=== PATIENT | female | born 2000 ===

== ENCOUNTER 2023-06-27 21:12 | Outpatient (REF) | payer OTHER, SELFPAY ==
[2023-06-29 16:10] LABS: Candida species Negative (Negative); Gardnerella vaginalis Negative (Negative); Trichomonas vaginalis Negative (Negative)
== END 2023-06-27 21:13 | disposition home or self-care (01) ==
LOC: LAB 21:12
PROVIDERS: Visit Provider Nurse Practitioner
DX: Z30.9 Encounter for contraceptive management, unspecified (principal); Z12.4 Encounter for screening for malignant neoplasm of cervix; Z11.3 Encounter for screening for infections with a predominantly sexual mode of transmission
CPT/HCPCS: 36415; 87480; 87510; 87624; 87660; 88175

== ENCOUNTER 2024-08-16 22:58 | Emergency (ER) | payer BC, OTHER, SELFPAY ==
--- OUTSIDE RECORDS SUMMARY | 2024-08-16 23:10 | XMS_ITS | CCD ---
Author Organization [facility] Care Team Providers Care Senior Project Manager Engineering Name Role Phone SYSTEM, PROVIDER NOT IN Primary Care MIKAYLA Howard JR. Attending Unavailab MIKAYLA Olmedo Attending Unavailable MIKAYLA TANNER Referring Unavailable Unavailable Primary Care Provider Unavailtony chapa Unavailable Primary Care Provider UnavailYOAN Ji Attending Unavailable YOAN DOWNS Attending Unavailable Mark BUFFING MACHINE TENDER-ACTIVITY SPECIALISTMichael Primary Care Provider Davion BUFFING MACHINE TENDER-FORECLOSURE CLERK, [place] Primary Care Provider KATHARINE MARTINEZ Attending Unavailable MICHAEL FLORES Referring Unavailable [facility] Primary Care Unavailable [facility] Care Unavailable MOODY HARRIS Attending Unavailabl e [facility] Primary Care Unava ilable Allergies Allergy Classification Reported Allergen(s) Allergy Type Date of Onset Reaction(s) Facility (7 sources) Amoxicillin; Translations: [AMOXICILLIN] Drug Allergy 3 Other (See Comments) [facility] Healthcare Work Phone: Medications Current Medications Medication Drug Class(es) Dates Sig (Normalized) Sig (Original) [id number] 200 actuat albuterol 0.09 mg/actuat metered dose inhaler (4 sources) beta2-Adrenergic Agonist take 2 puff(s) by inhalation every six hours as needed for wheezing albuterol (PROVENTIL HFA;VENTOLIN HFA) 90 mcg/actuation inhaler Inhale 2 puffs every 6 (six) hours as needed for wheezing. Active bisoprolol fumarate 5 mg oral tablet (5 sources) beta-Adrenergic Basilio Start: 09-25-2023 take 0.5 tablet by mouth once daily bisoprolol (ZEBETA) 5 mg tablet Indications: PAC (premature atrial contraction) , Dysautonomia (CMS-HCC) , Syncope and collapse , Palpitations , Abnormal EKG , Shortness of breath Take 0.5 tablets (2.5 mg total) by mouth nightly. 90 tablet 3 09/25/2023 Active Start: 01-26-2023 End: 09-25-2023 take 0.5 tablet by mouth once daily bisoprolol (ZEBETA) 5 mg tablet Indications: Dysautonomia (CMS-HCC) , Syncope and collapse , Palpitations , Abnormal EKG , PAC (premature atrial contraction) , Shortness of breath Take 0.5 tablets (2.5 mg total) by mouth nightly. 90 tablet 3 01/26/2023 09/25/2023 Discontinued (Reorder) cetirizine hydrochloride 10 mg chewable tablet (2 sources) Histamine-1 Receptor Antagonist cetirizine (ZyrTEC) 10 MG chewable tablet Chew Daily 0 Active Ethinyl Estradiol / norgestimate (3 sources) Progestin, Estrogen take 1 tablet by mouth once in the morning norgestimate-ethinyl estradioL (ORTHO TRI-CYCLEN,TRINESSA) 0.18/0.215/0.25 mg-35 mcg (28) per tablet Take 1 tablet by mouth in the morning. Active take 1 tablet by eduin th in the morning norgestimate-ethinyl estradiol (Sprintec 28) 0.25-35 MG-MCG tablet Take 1 tablet by mouth in the morning. 0 Active loratadine 10 mg oral tablet (4 sources) take 1 tablet by mouth in the morning loratadine (CLARITIN) 10 mg tablet Take 1 tablet (10 mg total) by mouth in the morning. Active midodrine hydrochloride 2.5 mg oral tablet (2 sources) alpha-Adrenergic Agonist Start: 09-25-19 24 End: 09-25-19 24 take 1 tablet by mouth three times daily midodrine (PROAMATINE) 2.5 mg tablet Take 1 tablet (2.5 mg total) by mouth 3 (three) times a day. 60 tablet 3 09/25/2023 09/25/2023 Discontinued montelukast 10 mg oral tablet (6 sources) Leukotriene Receptor Antagonist Start: 01-25-20 23 take 1 tablet by mouth once daily montelukast (SINGULAIR) 10 mg tablet Take 1 tablet (10 mg total) by mouth nightly. 01/24/2023 Active omeprazole 20 mg delayed release oral capsule (6 sources) Proton Pump Inhibitor take 1 capsule by mouth in the morning omeprazole (PriLOSEC) 20 mg capsule Take 1 capsule (20 mg total) by mouth in the morning. Active Problems Active Problems Problem Classification Problem Date Documented Date Episodic/Chronic Abdominal pain (2 sources) Unspecified abdominal pain; Translations: [Unspecified abdominal pain] Onset: 05-24-2022 Episodic Cardiac dysrhythmias (2 sources) Premature atrial contraction; Translations: [Atrial premature depolarization] Onset: 09-25-2023 09-21-2023 Chronic Esophageal disorders (2 sources) Laryngopharyngeal reflux; Translations: [Gastro-esophageal reflux disease without esophagitis] Onset: 03-30-2023 03-30-2023 Chronic Nervous system congenital anomalies (1 source) Familial dysautonomia [Ora-Day]; Translations: [Familial dysautonomia (ora-day)] Onset: 09-25-2023 Chronic Other connective tissue disease (1 source) Bursitis of left shoulder; Translations: [Bursitis of left shoulder] Onset: 12-18-2022 Episodic Other connective tissue disease (1 source) Bursitis of left shoulder; Translations: [Bursitis of left shoulder] 12-18-2022 Episodic Other ear and sense organ disorders (2 sources) Otitis externa of right ear; Translations: [Unspecified otitis externa, right ear] Onset: 03-30-2023 03-30-2023 Chronic Other ear and sense organ disorders (2 sources) Bilateral tinnitus; Translations: [Tinnitus, bilateral] Onset: 03-30-2023 03-30-2023 Episodic Other nervous system disorders (2 sources) Disorder of autonomic nervous system; Translations: [Disorder of the autonomic nervous system, unspecified] 09-21-2023 Chronic Other nervous system disorders (1 source) Disorder of the autonomic nervous system, unspecified; Translations: [Disorder of the autonomic nervous system, unspecified] Onset: 09-25-2023 Chronic Other non-traumatic joint disorders (2 sources) Derangement of left shoulder joint; Translations: [Other specific joint derangements of left shoulder, not elsewhere classified] 03-30-2023 Chronic Other non-traumatic joint disorders (2 sources) Chronic pain of left upper limb; Translations: [Pain in left shoulder] 03-30-2023 Episodic Other non-traumatic joint disorders (1 source) Pain in left shoulder; Translations: [Pain in left shoulder] Onset: 07-22-2024 Episodic Other non-traumatic joint disorders (1 source) Shoulder pain Onset: 07-22-2024 Episodic Other upper respiratory disease (2 sources) Chronic pharyngitis; Translations: [Chronic pharyngitis] Onset: 03-30-2023 03-30-2023 Chronic Unclassified (1 source) TROUBLE BREATHING Onset: 01-29-2024 Past or Other Problems Problem Classification Problem Date Documented Date Episodic/Chronic Cardiac dysrhythmias (3 sources) Palpitations; Translations: [Palpitations] Onset: 09-25-2023 09-25-2023 Episodic Conditions associated with dizziness or vertigo (1 source) Dizziness Onset: 09-25-2023 Episodic Other lower respiratory disease (2 sources) Dyspnea; Translations: [Shortness of breath] Onset: 01-29-2024 09-25-2023 Episodic Other lower respiratory disease (1 source) Shortness of breath; Translations: [Shortness of breath] Onset: 09-25-2023 Episodic Other screening for suspected conditions (not mental disorders or infectious disease) (2 sources) Electrocardiogram abnormal; Translations: [Abnormal electrocardiogram [ECG] [EKG]] Onset: 09-25-2023 09-25-2023 Episodic Syncope (3 sources) Vasovagal syncope; Translations: [Syncope and collapse] Onset: 09-25-2023 09-21-2023 Episodic Results Test Name Value Interpretation Reference Range Facil ity XR SHOULDER LT MIN 2 VWSon 0 07-22-2024 XR SHOULDER LT MIN 2 VWS XR SHOULDER LT MIN 2 VWS History: Shoulder pain EXAM: Left shoulder 3 views COMPARISON: 03/25/2023 FINDINGS: No fracture or dislocation. No osseous destruction. IMPRESSION: Negative exam. Finalized by Jeffrey Vasquez MD on 07/22/2024 6:11 PM Normal [facility] XR SHOULDER LEFT MIN 2 VIEWS on 12-18-2022 XR SHOULDER LEFT MIN 2 VIEWS EXAM: XR SHOULDER LEFT MIN 2 VIEWS HISTORY: left shoulder sprain COMPARISON: None. TECHNIQUE: 3 views left shoulder FINDINGS: Visualized left lung is clear. The coracoclavicular and acromioclavicular distances are normal. Glenohumeral joint spaces maintained. No fracture or dislocation. No soft tissue calcifications identified. IMPRESSION: Unremarkable left shoulder. Dictated Physician: Kai Hayward Dictated On: 12/18/2022 14:11 Interpreted By: Kai Hayward Transcribed By: Kai Hayward Signed By: Kai Hayward Signed On: 12/18/2022 14:11 Normal [facility] XR Shoulder - left 2 Viewson 12-18-2022 Radiology Study observation (narrative) [facility] Work Phone: IMPRESSION: Unremarkable left shoulder. Dictated Physician: Kai Haywadr Dictated On: 12/18/2022 14:11 Interpreted By: Kai Hayward Transcribed By: Kai Hayward Signed By: Kai Hayward Signed On: 12/18/2022 14:11 RADIOLOGY EXAM: XR SHOULDER LE FT MIN 2 VIEWS HISTORY: left shoulder sprain COMPARISON: None. TECHNIQUE: 3 views left shoulder FINDINGS: Visualized left lung is clear. The coracoclavicular and acromioclavicular distances are normal. Glenohumeral joint spaces maintained. No fracture or dislocation. No soft tissue calcifications identified. RADIOLOGY Kai Hayward MD - 12/18/2022 EXAM: XR SHOULDER LEFT MIN 2 VIEWS HISTORY: left shoulder sprain COMPARISON: None. TECHNIQUE: 3 views left shoulder FINDINGS: Visualized left lung is clear. The coracoclavicular and acromioclavicular distances are normal. Glenohumeral joint spaces maintained. No fracture or dislocation. No soft tissue calcifications identified. IMPRESSION IMPRESSION: Unremarkable left shoulder. Dictated Physician: Kai Hayward Dictated On: 12/18/2022 14:11 Interpreted By: Kai Hayward Transcribed By: Kai Hayward Signed By: Kai Hayward Signed On: 12/18/2022 14:11 [facility] Work Phone: XR Shoulder - left 2 ViewsOr dered By: Kai Hayward on 12-18-2022 [facility] Work Phone: CT ABDOMEN PELVIS WITH IV CO NTRAST ONLYon 05-24-2022 CT ABDOMEN PELVIS WITH IV CONTRAST ONLY EXAMINATION: CT ABDOMEN PELVIS WITH IV CONTRAST ONLY HISTORY: ORDERING SYSTEM PROVIDED HISTORY: RLQ abdominal pain (Age >= 14y), TECHNOLOGIST PROVIDED HISTORY: Illness/Other Reason for exam: RLQ abdominal pain Encounter Type: Initial Additional signs and symptoms: Patient reports that she developed umbilical abdominal pain on Monday that has since migrated to right lower quadrant, nausea ORDERING SYSTEM PROVIDED DIAGNOSIS CODES: COMPARISON: No relevant prior study available at time of interpretation. TECHNIQUE: Axial CT images of the abdomen and pelvis were obtained following administration of 75 mL of Isovue-370 intravenous contrast. Multiplanar 2D reconstructed images were obtained and reviewed. Dose reduction techniques were achieved by using: automated exposure control and/or adjustment of mA and/or kV according to patient size and/or use of iterative reconstruction technique. IOPAMIDOL 370 MG IODINE/ML (76 %) INTRAVENOUS SOLUTION - 75 mL, FINDINGS: LOWER CHEST: The imaged lung bases are clear. LIVER: Nonspecific mild periportal edema. GALLBLADDER: Unremarkable. BILE DUCTS: No pathologic biliary ductal dilatation. SPLEEN: Unremarkable. PANCREAS: Unremarkable. ADRENAL GLANDS: Unremarkable. KIDNEYS/URETERS: Unremarkable. URINARY BLADDER: Unremarkable. PELVIC STRUCTURES: Uterus is present. Nonspecific trace pelvic free fluid, may be physiologic. GI: Limited evaluation due to fecal contents and lack of distension. Mild-moderate colonic stool burden. No bowel obstruction. Appendix difficult to reliably identify however there are no secondary signs of acute appendicitis. Nonspecific slightly thickened appearing fluid-filled loops of small bowel in the right lower quadrant, possible enteritis. PERITONEUM: No free air. No abscess. VASCULATURE: Unremarkable. LYMPH NODES: No pathologically enlarged lymph nodes by CT size criteria. SOFT TISSUE: Unremarkable. BONE: No acute osseous abnormality. No suspicious osseous lesions. IMPRESSION: No acute process definitely identified. Findings which could suggest mild constipation or a mild enteritis. No bowel obstruction. Appendix difficult to reliably identify however no secondary signs of acute appendicitis. Nonspecific trace pelvic free fluid, probably physiologic. Workstation ID: [id number] Dictated by: YOAN GARZA on MonMay 24, 2022 4:42:14 PM EDT Transcribed by: YOAN GARZA on MonMay 24, 2022 4:42:14 PM EDT Finalized by: YOAN GARZA on MonMay 24, 2022 4:42:[address] [facility] Comment on above: Order Comment: Injur y/Trauma or Illness?:Illness/Other How long have you had these symptoms (acute/chronic)?:Acute Reason for exam?:RLQ abdominal pain Type of Exam?:Initial Additional signs and symptoms?:Patient reports that she developed umbilical abdominal pain on Monday that has since migrated to right lower quadrant, nausea Vital Signs Date Time Vital Sign Value Performing Clinician Faci lity 09-25-2023 07:50-0400 Body height 165.1 cm Katharine Martinez MD Work Phone: [facility] 09-25-2023 07:50-0400 Body mass index (BMI) [Ratio] 18.64 kg/m2 Katharine Martinez MD Work Phone: [facility] 09-25-2023 07:50-0400 Body weight 50.8 kg Katharine Martinez MD Work Phone: [phone] [place] [address] 09-25-2023 07:50-0400 Diastolic blood pressure 70 mm[Hg] Katharine Martinez MD Work Phone: [facility] 09-25-2023 07:50-0400 Heart rate 86 /min Katharine Martinez MD Work Phone: [facility] 09-25-2023 07:50-0400 SaO2% (BldA) [Mass fraction] 98 % Katharine Martinez MD Work Phone: [facility] 09-25-2023 07:50-0400 Systolic blood pressure 102 mm[Hg] Katharine Martinez MD Work Phone: [facility] 03-30-2023 09:57-0500 Body height 165.1 cm Yoan Downs NP Work Phone: [facility] 03-30-2023 09:57-0500 Body mass index (BMI) [Ratio] 17.81 kg/m2 Yoan Downs NP Work Phone: [facility] 03-30-2023 09:57-0500 Body weight 48.53 kg Yoan Downs CARTON CATCHER Work Phone: [facility] Healthcare Encounters Encounter Date Encounter Type Care Provider Facility Start: 07-22-2024 End: 07-22-2024 Emergency department patient visit [facility] Start: 01-29-2024 End: 01-29-2024 Emergency department patient visit [facility] Start: 09-25-2023 End: 09-25-2023 Office outpatient visit 25 minutes Katharine Martinez MD Work Phone: [facility] Comment on above: Vasovagal syncope (P rimary Dx); Autonomic dysfunction; PAC (premature atrial contraction); Dysautonomia (CMS-HCC); Syncope and collapse; Palpitations; Abnormal EKG; Shortness of breath Start: 09-25-2023 End: 09-25-2023 ambulatory [facility] Start: 09-22-2023 End: 09-22-2023 [facility] Start: 06-29-2023 End: 06-29-2023 ambulatory YOAN DOWNS Not Available Start: 06-21-2023 End: 06-26-2023 Telephone encounter Antionette Freedman RN [facility] Start: 04-19-2023 Telephone encounter [facility] Start: 03-30-2023 Bamboo flowsheet Yoan Downs CARTON CATCHER Work Phone: [facility] Start: 03-30-2023 Bamboo flowsheet Yoan Downs CARTON CATCHER Work Phone: [facility] Start: 03-30-2023 End: 03-30-2023 ambulatory YOAN DOWNS Not Available Start: 03-30-2023 End: 03-30-2023 Office outpatient new 30 minutes Yoan Downs CARTON CATCHER Work Phone: [facility] Comment on above: Chronic left shoulde r pain (Primary Dx); Internal derangement of left shoulder Start: 12-18-2022 ambulatory [facility] Start: 12-18-2022 End: 12-18-2022 Subsequent hospital visit by physician Mikayla Duke Govind JAEGERACTIVITY SPECIALIST Work Phone: [facility] Comment on above: Arrived Start: 05-24-2022 End: 05-24-2022 Emergency department patient visit PROVIDER NOT IN SYSTEM [facility] Procedures Date Procedure Procedure Detail Performing Clinician Start: 09-25-2023 Follow-up visit Follow-up RAVINDER MARTINEZ Start: 12-18-2022 Radex shoulder compl ete minimum 2 views Mikayla Duke Govind JAEGERACTIVITY SPECIALIST Work Phone: Plan of Treatment Date Care Activity Detail Author Start: 09-24-2024 Adult BMI Screening Adult BMI Screen ing [facility] Start: 09-24-2024 Tobacco Screening Tobacco Screening [facility] Start: 02-11-2024 Adult BMI Screening Adult BMI Screen ing [facility] Start: 01-27-2024 Tobacco Screening Tobacco Screening [facility] Start: 10-15-2023 Influenza vaccination Influenza Vacc ine [facility] Start: 09-25-2023 End: 09-25-2023 Patient encounter procedure 09/25/2023 8:00 AM EDT Office Visit [facility] [address] [place] [id number] Katharine Martinez MD [address] [place] [address] [facility] Start: 05-11-2023 End: 05-11-2023 Patient encounter procedure 05/11/2023 2:00 PM EDT Office Visit [facility] [address] [place] [address] Yoan Downs NP [address] [place], [place] [id number] [facility] Start: 04-20-2023 End: 04-20-2023 Patient encounter procedure 04/20/2023 8:45 AM EST Office Visit [facility] [address] [place] [phone] Jenae Wagner MD [address] [place] [address] [facility] Start: 03-30-2023 End: 03-30-2023 Patient encounter procedure 03/30/2023 9:45 AM EST Office Visit [facility] [address] [place] [address] Yoan Downs, CARTON CATCHER [address] [place] [address] Arrived [facility] Comment on above: Arrived Start: 10-14-2022 Influenza vaccination H [facility] Start: 2021 Screening for malign ant neoplasm of cervix [facility] Start: 08-05-2019 DTaP,Tdap and Td Vaccines (1 - Tdap) DTaP,Tdap and Td Vaccines (1 - Tdap) [facility] Start: 08-05-2019 Third diphtheria, tetanus and acellular pertussis (DTaP) vaccination TDAP (ADULT) [facility] Start: 2018 Adult BMI Follow Up Plan Adult BMI Follow Up Plan [facility] Start: 2016 Screening for Chlamy mouna trachomatis CHLAMYDIA SCREEN [facility] Start: 08-05-2015 HIV screening HIV SCREENING DISCUSSION [facility] Start: 2012 Depression Screening Depression Scre ening [facility] Start: 08-05-2011 Vaccination for antonia n papillomavirus HPV VACCINE ADOL (1 - 2-dose series) [facility] Start: 02-03-2001 COVID-19 VACCINE (#1) COVID-19 VACCI NE (#1) [facility] Start: 2000 Hepatitis C screening HEPATITI S C VIRUS SCREENING [facility] Start: 2000 Screening for Chlamy mouna trachomatis GONORRHEA SCREEN [facility] Start: 2000 Tetanus vaccination [facility] Payers Date Payer Category Payer Unknown [id number] 2022 Unknown ANU ELIZABETH [id number] 2022-Present [address] [place] [address] [id number] 2021 Medicaid [id number] 2021 Medicaid [id number] 2000 Unknown [id number] 2000 Unknown [id number] 2000 Unknown [id number] 2000 Unknown [id number] 2000 Unknown [id number] 2000 Unknown [id number] 2000 Unknown [id number] Social History Date Type Detail Facility Tobacco smoking stat us INIS Tobacco smoking consumption unknown [facility] Start: 2000 Sex Assigned At Not on file [facility] Work Phone: Start: 03-26-2020 End: 03-30-2023 Gender identity Not on file [facility] Start: 10-19-2022 End: 03-30-2023 Tobacco smoking status NHIS Never smoked tobacco [facility] Start: 10-19-2022 End: 03-30-2023 Tobacco use and exposure Smokeless tobacco non-user [facility] Start: 03-30-2023 End: 09-25-2023 Alcohol intake Current drinker of alcohol (finding) [facility] Start: 03-26-2020 End: 03-30-2023 History of Social function [facility] Childcare Unknown [facility] Start: 2000 Sex assigned at Female [facility] Start: 01-21-2022 Gender identity Identifies as female gender (finding) [facility] Start: 01-21-2022 Sexual orientation Heterosexual (finding) [facility] Clinical Notes 03-30-2023 to 09-25-2023 Katharine Martinez MD - 09/25/2023 8:00 AM EDTTelephone Encounter - Elsie Rodriguez, [facility] - 09/22/2023 2:55 PM EDTTelephone Encounter - Elsie Rodriguez, [facility] - 09/22/2023 2:55 PM EDT Note Date & Type Note Facility 09-25-2023 History of Presen t illness Narrative Mohan Smootrocky Kennedy Date of visit: 09/25/2023 Date of : 2000 Age: 23 y.o. There is no problem list on file for this patient. Allergies Allergen Reactions Amoxicillin Other (See Comments) Medication does not work Current Outpatient Medications Medication Sig Dispense Refill albuterol (PROVENTIL HFA;VENTOLIN HFA) 90 mcg/actuation inhaler Inhale 2 puffs every 6 (six) hours as needed for wheezing. loratadine (CLARITIN) 10 mg tablet Take 1 tablet (10 mg total) by mouth in the morning. montelukast (SINGULAIR) 10 mg tablet Take 1 tablet (10 mg total) by mouth nightly. norgestimate-ethinyl estradioL (ORTHO TRI-CYCLEN,TRINESSA) 0.18/0.215/0.25 mg-35 mcg (28) per tablet Take 1 tablet by mouth in the morning. omeprazole (PriLOSEC) 20 mg capsule Take 1 capsule (20 mg total) by mouth in the morning. bisoprolol (ZEBETA) 5 mg tablet Take 0.5 tablets (2.5 mg total) by mouth nightly. 90 tablet 3 midodrine (PROAMATINE) 2.5 mg tablet Take 1 tablet (2.5 mg total) by mouth 3 (three) times a day. 60 tablet 3 No current facility-administered medications for this visit. Chief Complaint Patient presents with Follow-up Palpitations Dizziness History of Present Illness Patient with history of vasovagal syncope, autonomic dysfunction, low burden PACs, mild TR, GERD, malnutrition. Here for follow-up visit. Last seen in office 01/2023. Visit reviewed. Patient stated that he is doing well. Still has occasional dizzy spells/lightheadedness that occur couple times per week. Denied any syncope or presyncope since last visit. No chest pain. Occasional shortness of breath due to asthma exacerbation which responded to risk inhalers. Dyspnea or edema. Occasional palpitations. No tobacco use or alcohol use or recreational drug use. Does strenuous her some job and getting back to school. Stated that he drinks an average of 50 60 oz fluid per day. Past Medical History: Diagnosis Date Allergies Chronic cough GERD (gastroesophageal reflux disease) Reactive airway disease No data recorded No data recorded No data recorded History reviewed. No pertinent surgical history. Family History Problem Relation Age of Onset Asthma Mother Thyroid Issues Father Social History Socioeconomic History Marital status: Single Spouse name: Not on file Number of children: Not on file Years of education: Not on file Highest education level: Not on file Occupational History Not on file Tobacco Use Smoking status: Never Smokeless tobacco: Never Vaping Use Vaping status: Never Used Substance and Sexual Activity Alcohol use: Yes Drug use: Never Sexual activity: Not on file Other Topics Concern Caffeine Use Yes Social History Narrative Not on file Social Determinants of Health Financial Resource Strain: Not on file Food Insecurity: No Food Insecurity (09/25/2023) Hunger Screening Food Insecurity - Worry: Never True Food Insecurity - Inability: Never True Transportation Needs: Not on file Physical Activity: Not on file Stress: Not on file Social Connections: Not on file Interpersonal Safety: Not on file Housing Instability: Not on file Review of Systems Review of Systems Respiratory: Negative for cough, hemoptysis and wheezing. Gastrointestinal: Negative for abdominal pain, change in bowel habit and hematochezia. Genitourinary: Negative for dysuria and hematuria. Neurological: Negative for focal weakness, headaches and paresthesias. CARDIOVASCULAR: Please review HPI. Physical Examination General appearance: Alert, oriented and cooperative. In no acute distress. Skin: Warm and dry to touch. Head: Normocephalic, without obvious abnormality, atraumatic. Ears, Nose, Mouth, Throat: Throat clear without erythema or exudate. Dentition intact. Eyes: Conjunctivae unremarkable, EOM intact. Neck: No JVD, No carotid bruit. Neck supple, trachea midline. Respiratory: Clear to auscultation bilaterally, no use of accessory muscles. Cardiovascular: RRR with normal S1 and S2 with no murmurs. Gastrointestinal: Soft, non-tender. Bowel sounds normal. Musculoskeletal: No peripheral edema. Neurologic: Oriented to time, person and place, affect appropriate. No focal/major motor defects noted. Psychiatric: Appropriate mood, memory and judgement. VITAL SIGNS: BP 102/70 (BP Site: Left Arm, BP Postition: Sitting) Pulse 86 Ht 165.1 cm (5' 5 ) Wt 50.8 kg (112 lb) SpO2 98% BMI 18.64 kg/m Orders Placed or Reconciled This Encounter Medications norgestimate-ethinyl estradioL (ORTHO TRI-CYCLEN,TRINESSA) 0.18/0.215/0.25 mg-35 mcg (28) per tablet Sig: Take 1 tablet by mouth in the morning. midodrine (PROAMATINE) 2.5 mg tablet Sig: Take 1 tablet (2.5 mg total) by mouth 3 (three) times a day. Dispense: 60 tablet Refill: 3 bisoprolol (ZEBETA) 5 mg tablet Sig: Take 0.5 tablets (2.5 mg total) by mouth nightly. Dispense: 90 tablet Refill: 3 Medications Discontinued During This Encounter Medication Reason bisoprolol (ZEBETA) 5 mg tablet Reorder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
[2024-08-16 23:15] VITALS: BP 128/80; PULSE 89; TEMP 36.8; O2SAT 98; BMI 17.8
--- NOTE | 2024-08-16 23:35 | ED.NECK1 ---
HPI HPI - Neck Pain/Injury General Chief Complaint: Neck Pain/Injury Stated Complaint: NECK PAIN Time Seen by Provider: 08/16/24 23:22 Source: patient Mode of arrival: walk-in Limitations: no limitations History of Present Illness HPI Narrative: uncontrolled jerking of her neck. Ongoing for 4 days. Seen at [facility] [address] neg and she was given flexeril which has not help. Has uncontrolled jerk with her head being pulled down and to the left repeately. Tonight she feels like her lip is being pulled also. No problem swallowing. No headache. Does not involve her extremities. Related Data Home Medications �Medication �Instructions �Recorded �Confirmed albuterol sulfate 90 mcg/actuation 2 puff inhalation Q4H PRN 08/16/24 08/16/24 aerosol inhaler shortness of breath or wheezing cetirizine 10 mg tablet 10 mg PO DAILY 08/16/24 08/16/24 cyclobenzaprine 10 mg tablet 10 mg PO Q12H 08/16/24 08/16/24 loratadine 10 mg tablet 10 mg PO Q24H 08/16/24 08/16/24 montelukast 10 mg tablet 10 mg PO DAILY 08/16/24 08/16/24 norgestimate 0.18 mg/0.215mg/0.25 1 tab PO Q24H 08/16/24 08/16/24 mg-ethinyl estradiol 0.025 mg tablet ([id number]) Allergies Allergy/AdvReac Type Severity Reaction Status Date / Time No Known Drug Allergies Allergy Verified 08/16/24 23:21 Opioid HPI Opioid Management Most Recent Opioid Data: Last Pain Scale 5 08/16/24, 23:29 Last ED Pain Assessment 08/16/24, 23:29 Review of Systems ROS Status of ROS 10 or more systems reviewed and unremarkable except as noted in history and below PFSH PFSH Social History Little interest or pleasure in doing things: not at all Feeling down, depressed, or hopeless: not at all Exam Constitutional Vital Signs, click to edit/add: Last Vital Signs Temp 98.3 F 08/16/24 23:15 Pulse 81 08/17/24 03:27 Resp 16 08/17/24 03:27 BP 116/76 08/17/24 03:27 Pulse Ox 99 08/17/24 03:27 O2 Del Method Room Air 07/05/25 03:27 Common normals: no apparent distress, average body habitus, oriented x3, no limitations, healthy appearing, alert and well nourished Other: head jerks to left repeatedly. May stop for few seconds and then start again. speech is clear HENMT Common normals: normocephalic and head/scalp atraumatic Eye Common normals: EOMs intact bilaterally and conjunctivae normal Respiratory Common normals: normal respiratory effort, no retractions, no use of accessory muscles and clear to auscultation bilaterally Cardio Common normals: regular rate, regular rhythm, S1 normal heart sound and S2 normal heart sound GI Common normals: Normal to inspection, nondistended, normoactive bowel sounds present, soft to palpation and non-tender Extremity Common normals: normal to inspection and full ROM Neuro Common normals: oriented x3, CN's II-XII intact bilaterally, moves all extremities and no sensory deficits noted Other: myoclonic mild repetitive jerks of face to the left Course Vital Signs Vital signs: Vital Signs Temperature 98.3 F 08/16/24 23:15 Pulse Rate 89 08/16/24 23:15 Respiratory Rate 16 08/16/24 23:15 Blood Pressure 128/80 08/16/24 23:15 Pulse Oximetry 98 08/16/24 23:15 Oxygen Delivery Method Room Air 08/16/24 23:15 Temperature 98.3 F 08/16/24 23:15 Pulse Rate 81 08/17/24 03:27 Respiratory Rate 16 08/17/24 03:27 Blood Pressure 116/76 08/17/24 03:27 Pulse Oximetry 99 08/17/24 03:27 Oxygen Delivery Method Room Air 08/17/24 03:27 MDM - Neck Pain/Injury MDM Narrative Medical decision making narrative: patient presents with jerking uncontrolled muscular type spasm of her neck that pulls her head down to the left. Ongoing for 4 days. Seen at [facility] and CT brain reportedly neg per the patient and prescribed flexeril. States it has not help. Labs in the department WNL. Treated with cocktail of clonipin, magnesium and Baclofen and her muscular jerks stop and she was able to rest. She is advised to follow up with Neurology. States she has an appointment with her family doctor monday Lab Data Labs: Lab Results 08/16/24 Range/Units 23:40 WBC 7.2 (4.0-11.0) 10^3/uL RBC 4.63 (4.20-5.40) 10^6/uL Hgb 13.3 (12.0-16.0) g/dL Hct 40.2 (36.0-48.0) % MCV 86.8 (81.0-99.0) fL MCH 28.7 (26.7-34.0) pg MCHC 33.1 (29.9-35.2) g/dL RDW 12.4 (11.0-15.0) % Plt Count 208 (150-450) 10^3/uL MPV 9.0 L (9.5-13.5) fL Neut % (Auto) 45.6 (43.0-75.0) % Lymph % (Auto) 42.9 (20.5-60.0) % Hand % (Auto) 6.5 (1.7-12.0) % Eos % (Auto) 4.6 (0.9-7.0) % Baso % (Auto) 0.3 (0.2-2.0) % Neut # (Auto) 3.3 (1.4-6.5) 10^3/uL Lymph # (Auto) 3.1 (1.2-3.8) 10^3/uL Hand # (Auto) 0.5 (0.3-0.8) 10^3/uL Eos # (Auto) 0.3 (0.0-0.7) 10^3/uL Baso # (Auto) 0.0 (0.0-0.1) 10^3/uL Abs Immat Gran (auto) 0.01 (0.00-0.03) 10^3/uL Imm/Tot Granulo (auto) 0.1 (0.0-0.5) % Sodium 141 (136-145) mmol/L Potassium 3.8 (3.5-5.1) mmol/L Chloride 104 (98-107) mmol/L Carbon Dioxide 28.0 (21.0-32.0) mmol/L Anion Gap 12.8 BUN 14.0 (7.0-18.0) mg/dL Creatinine 0.86 (0.55-1.02) mg/dL Est GFR ( Amer) >60 (>=60 mL/min/1.73m^2) Est GFR (Non-Af Amer) >60 (>=60 mL/min/1.73m^2) BUN/Creatinine Ratio 16.3 Glucose 93 (74-106) mg/dL Calcium 9.7 (8.5-10.1) mg/dL Magnesium 1.8 (1.8-2.4) mg/dL Discharge Plan Discharge Chief Complaint: Neck Pain/Injury Clinical Impression: Jerky body movements Patient Disposition: Home, Self-Care Prescriptions / Home Meds: No Action cetirizine 10 mg tablet 10 mg PO DAILY albuterol sulfate 90 mcg/actuation HFA aerosol inhaler 2 puff INHALATION Q4H PRN (Reason: shortness of breath or wheezing) cyclobenzaprine 10 mg tablet 10 mg PO Q12H loratadine 10 mg tablet 10 mg PO Q24H norgestimate-ethinyl estradiol [[id number]] 0.18/0.215/0.25 mg-0.025 mg tablet 1 tab PO Q24H montelukast 10 mg tablet 10 mg PO DAILY Print Language: [place] Instructions: Tremors (ED) Additional Instructions: discontinue flexeril and use baclofen instead. Follow up with your doctor in next 2-3 days as scheduled Referrals: [facility] [Primary Care Provider] - 1 week
[2024-08-16 23:48] LABS: Hematocrit 40.2 % (36.0-48.0); Hemoglobin 13.3 g/dL (12.0-16.0); Immature Granulocytes Abs Auto 0.01 10^3/uL (0.00-0.03); Immature Granulocytes Pct Auto 0.1 % (0.0-0.5); Lymphocytes Absolute Auto 3.1 10^3/uL (1.2-3.8); Mean Corpuscular HGB Conc 33.1 g/dL (29.9-35.2); Mean Corpuscular Hemoglobin 28.7 pg (26.7-34.0); Mean Corpuscular Volume 86.8 fL (81.0-99.0); Platelet Count 208 10^3/uL (150-450); Red Blood Count 4.63 10^6/uL (4.20-5.40); White Blood Count 7.2 10^3/uL (4.0-11.0)
[2024-08-16 23:56] LABS: Anion Gap 12.8; Blood Urea Nitrogen 14.0 mg/dL (7.0-18.0); Calcium 9.7 mg/dL (8.5-10.1); Carbon Dioxide 28.0 mmol/L (21.0-32.0); Chloride 104 mmol/L (98-107); Estimated GFR (African America >60 (>=60 mL/min/1.73m^2); Estimated GFR (Non-African Ame >60 (>=60 mL/min/1.73m^2); Glucose 93 mg/dL (74-106); Magnesium 1.8 mg/dL (1.8-2.4); Potassium 3.8 mmol/L (3.5-5.1); Sodium 141 mmol/L (136-145)
[2024-08-17] MEDS: LORAZEPAM 1 MG TABLET PO (00:49)
[2024-08-17] MEDS: MAGNESIUM SULFATE IN WATER 2 GM/50 ML PREMIX IV (00:49)
[2024-08-17 01:49] VITALS: BP 113/69; PULSE 74; O2SAT 98
[2024-08-17 03:27] VITALS: BP 116/76; PULSE 81; O2SAT 99
[2024-08-17] MEDS: BACLOFEN 10 MG TABLET 20 MG PO (03:33)
== END 2024-08-17 04:32 | disposition home or self-care (01) ==
PROVIDERS: Emergency Provider Internal Medicine
DX: G25.3 Myoclonus (principal)
CPT/HCPCS: 36415; 80048; 83735; 85025; 96365; 99284; J3475